=== PATIENT | male | born 1940 | race Caucasian/White ===

== ENCOUNTER 2016-05-21 07:06 | Observation (INO) | payer MEDICARE ==
[~2016-05-21] VITALS: Ht 175.3 cm; Wt 81.9 kg
[2016-05-21] MEDS ORDERED: METO12TA PO (07:22)
[2016-05-21] MEDS ORDERED: ASPI325T28 PO (07:22)
[2016-05-21] MEDS ORDERED: OMEP40CA2 PO (07:22)
[2016-05-21] MEDS ORDERED: DIGO0.12 PO (07:22)
[2016-05-21] MEDS ORDERED: LISI-538 PO (07:22)
[2016-05-21] MEDS ORDERED: LISINOPRIL 20 MG TAB PO ONE (08:45)
[2016-05-21] MEDS ORDERED: LISINOPRIL 10 MG TAB PO ONE ×2 (08:45)
[2016-05-21] MEDS ORDERED: MULTIVITAMINS/MINERALS THERAP 1 TAB PO SCH (09:00)
[2016-05-21] MEDS ORDERED: FOLIC ACID 1 MG TAB PO SCH (09:00)
[2016-05-21] MEDS: METOPROLOL TART 25 MG TABLET PO SCH ×2 (09:00→20:10)
[2016-05-21 09:04] LABS: MEAN CORPUSCULAR HEMOGLOBIN 31.6 pg (27.0-33.0); MEAN CORPUSCULAR HGB CONC 33.5 g/dl (32.0-36.5); MEAN CORPUSCULAR VOLUME 94.2 fl (80.0-96.0); RED CELL DISTRIBUTION WIDTH 12.6 % (11.5-14.5); WHITE BLOOD COUNT 5.5 K/mm3 (4.0-10.0)
[2016-05-21 09:30] LABS: ALBUMIN 3.5 GM/DL (3.2-5.2); ALBUMIN/GLOBULIN RATIO 1.13 (1.00-1.93); ALKALINE PHOSPHATASE 76 U/L (45-117); ALT/SGPT 28 U/L (12-78); ANION GAP 8 MEQ/L (8-16); AST/SGOT 21 U/L (15-37); BILIRUBIN,TOTAL 0.5 MG/DL (0.2-1.0); BLOOD UREA NITROGEN 22 MG/DL (7-18); CALCIUM LEVEL 8.7 MG/DL (8.8-10.2); CARBON DIOXIDE LEVEL 30 MEQ/L (21-32); CHLORIDE LEVEL 104 MEQ/L (98-107); CREATININE FOR GFR 0.84 MG/DL (0.70-1.30); GLOMERULAR FILTRATION RATE > 60.0 (>42); GLUCOSE, FASTING 98 MG/DL (83-110); POTASSIUM SERUM 4.4 MEQ/L (3.5-5.1); SODIUM LEVEL 142 MEQ/L (136-145); TOTAL PROTEIN 6.6 GM/DL (6.4-8.2)
[2016-05-21] MEDS ORDERED: OMEPRAZOLE 20 MG CAP PO ONE (09:45)
[2016-05-21 09:51] LABS: MAGNESIUM LEVEL 2.1 MG/DL (1.8-2.4)
[2016-05-21 10:13] LABS: MYOGLOBIN 85 NG/ML (16-116)
--- NOTE | 2016-05-21 11:17 | REP ---
CHEST, TWO VIEWS: Two views of the chest are performed. There is bibasilar interstitial fibrotic change which appear stable. There is no acute infiltrate or pulmonary edema. The heart is not enlarged. There is mild calcification of the thoracic aorta. The mediastinal silhouette is unchanged. IMPRESSION: Stable chronic findings without evidence of acute pulmonary disease. Signed by Ben Shafer MD 05/21/2016 04:35 P
[2016-05-21] MEDS ORDERED: ACETAMINOPHEN TAB 650MG DOSE (2X325MG) PO PRN (12:30)
[2016-05-21 14:00] VITALS: BP 166/79
[2016-05-21 14:02] LABS: ANION GAP 9 MEQ/L (8-16); BLOOD UREA NITROGEN 21 MG/DL (7-18); CALCIUM LEVEL 8.8 MG/DL (8.8-10.2); CARBON DIOXIDE LEVEL 29 MEQ/L (21-32); CHLORIDE LEVEL 104 MEQ/L (98-107); GLOMERULAR FILTRATION RATE > 60.0 (>42); GLUCOSE, FASTING 86 MG/DL (83-110); POTASSIUM SERUM 4.2 MEQ/L (3.5-5.1); SODIUM LEVEL 142 MEQ/L (136-145)
--- NOTE | 2016-05-21 14:42 | ECGEPIP ---
Stationary ECG Study [facility] - ED Test Date: 2016-05-21 Pat Name: YONI HICKS Department: Room: - Gender: M Carbonizer: jerry : 1940 Requested By: PAM Rosenbaum Order Number: [id number] Reading MD: Gaurav Minor Measurements Intervals [place] Rate: 58 P: 34 ID: 163 QRS: 9 QRSD: 143 T: 12 QT: 439 QTc: 431 Interpretive Statements SINUS BRADYCARDIA WITH OCCASIONAL SUPRAVENTRICULAR PREMATURE COMPLEXES INDETERMINATE AXIS RIGHT BUNDLE BRANCH BLOCK SIMILAR TO 10/13/13 Electronically Signed On 05-21-2016 14:42:43 EDT by Gaurav Minor
[2016-05-21] MEDS ORDERED: chlordiazePOXIDE 25 MG CAP PO ONE (14:45)
[2016-05-21] MEDS ORDERED: LORazepam 2 MG TAB PO PRN (14:45)
[2016-05-21] MEDS ORDERED: amLODIPine 5 MG TAB PO ONE (15:00)
--- NOTE | 2016-05-21 15:00 | HPEPDOC ---
Medical History and Physical Date of Admission May 21, 2016 at 12:19 History and Physical PRIMARY CARE PROVIDER: Pt says 'mauritian name', starts with a T; unsure ATTENDING: Jason Skaggs MD CHIEF COMPLAINT: High blood pressure HISTORY OF PRESENT ILLNESS: This is a 75-year-old male past medical history of atrial fibrillation (refused anticoagulation), hypertension, COPD who presents stating that his blood pressure is high. Patient had an episode of epistaxis earlier today, checked his blood pressure with systolic blood pressure greater than 170. Patient then decided to come to the emergency department. Patient states his epistaxis has completely resolved. In the ED patient's blood pressure was in the 170s was treated with an increased dose of lisinopril. While on the ED patient was directed to 15 beat of nonsustained V. tach. Patient was asymptomatic. Patient denied chest pain/shortness of breath/palpitations. Patient denies syncopal episode. No history of coronary artery disease or heart failure. I did speak with Thomas Kruse NP at [facility], patient's process specialist who recommended no antiarrhythmics unless the patient has recurrent V. tach. He will also see the patient on the of this month, and he'll schedule a 30 day Holter at that time. PAST MEDICAL HISTORY: As per HPI PAST SURGICAL HISTORY: Left sinus cyst removal SOCIAL HISTORY: History of tobacco abuse 1 pack per day 45 years, quit 14 years ago. Drinks 3-5 beers daily last drink 2 days ago. FAMILY HISTORY:M, F heart dz age 70s ALLERGIES: Please see below. REVIEW OF SYSTEMS: HEENT: Denies sore throat/headache CARDIOVASCULAR: Denies chest pain/palpitations RESPIRATORY: No shortness of breath/cough GASTROINTESTINAL: denies nausea/vomiting GENITOURINARY: Denies dysuria/urinary urgency. MUSCULOSKELETAL: Denies myalgias/arthralgias NEUROLOGICAL: Denies any focal weakness Rest of ROS negative HOME MEDICATIONS: Please see below. PHYSICAL EXAMINATION: Vitals: (see below) General: No acute distress, laying comfortably in bed. HEENT: Moist mucous membranes. Left nausea with dry blood. No active bleeding. Neck: No JVD or lymphadenopathy Cardiac: RRR, No murmurs Pulm: Clear to auscultation b/l. No wheezing, rhonchi Abd: NT/ND + BS Ext: No edema or cyanosis LABORATORY DATA: See below. IMAGING: MICROBIOLOGY: Please see below. ASSESSMENT/PLAN: 1. NSVT - asymptomatic; will monitor in PCU. Keep K>4; Mg>2. If recurrent consider inpatient cardiology consult as pt will likely need antiarrhythmic agent. Trend troponins. EKG with sinus bradycardia 56, complete right bundle branch block, nonspecific ST changes, no acute changes from prior EKG. 2. Uncontrolled HTN; lisinopril increased to 30 mg. Amlodipine added. 3. History of atrial fibrillation- on aspirin and metoprolol. Had an extensive conversation with the patient, and he is refusing anticoagulation 4. COPD- stable 5. Epistaxis- left nostril; follows up with ENT. History of left sinus cyst removal. 6. Alcohol abuse- Serax 15mg TID, Ativan as needed, MVI, folate, thiamine DVT prophylaxis- SCDs Vital Signs Vital Signs Date Time Temp Pulse Resp B/P Pulse Ox O2 Delivery O2 Flow Rate FiO2 05/21/16 14:00 97.9 55 19 166/79 95 Nasal Cannula 2.0 Laboratory Data Labs 24H Laboratory Tests 2 05/21/16 08:50: Blood Urea Nitrogen 22H, Creatinine 0.84, Sodium Level 142, Potassium Level 4.4 , Chloride Level 104, Carbon Dioxide Level 30, Calcium Level 8.7L, Aspartate Amino Transf (AST/SGOT) 21, Alanine Aminotransferase (ALT/SGPT) 28, Total Creatine Kinase 90, Alkaline Phosphatase 76, Total Bilirubin 0.5, Total Protein 6.6, Albumin 3.5, Albumin/Globulin Ratio 1.13, Anion Gap 8, Creatine Kinase MB 3.4, Creatine Kinase MB Relative Index 3.77, Digoxin Level 0.6, Glomerular Filtration Rate > 60.0, Magnesium Level 2.1, Myoglobin 85, Troponin I < 0.02 05/21/16 12:59: Blood Urea Nitrogen 21H, Creatinine 0.80, Sodium Level 142, Potassium Level 4.2 , Chloride Level 104, Carbon Dioxide Level 29, Calcium Level 8.8, Anion Gap 9, Glomerular Filtration Rate > 60.0 CBC/BMP Laboratory Tests 05/21/16 08:50 Calcium Level 8.7 L, Aspartate Amino Transf (AST/SGOT) 21, Alanine Aminotransferase (ALT/SGPT) 28, Total Creatine Kinase 90, Alkaline Phosphatase 76, Total Bilirubin 0.5, Total Protein 6.6, Albumin 3.5, Red Blood Count 4.62, Mean Corpuscular Volume 94.2, Mean Corpuscular Hemoglobin 31.6, Mean Corpuscular Hemoglobin Concent 33.5, Red Cell Distribution Width 12.6 05/21/16 12:59 Calcium Level 8.8 Home Medications Scheduled Aspirin (Aspirin) 325 Mg Tab 325 MG PO QHS Digoxin (Digoxin) 0.125 Mg Tab 0.125 MG PO QHS Lisinopril (Lisinopril) 20 Mg Tab 20 MG PO DAILY Metoprolol Tartrate (Metoprolol Tartrate) 25 Mg Tab 25 MG PO BID Omeprazole (Omeprazole) 40 Mg Cap 20 MG PO DAILY Allergies Coded Allergies: Sulfamethizole (Verified Allergy, Unknown, hives, 05/21/16) JASON SKAGGS MD May 21, 2016 15:00
[2016-05-21 16:00] VITALS: BP 149/80
[2016-05-21] MEDS: OXAZEPAM 15 MG CAP PO SCH ×2 (16:08→22:00)
[2016-05-21] MEDS: THIAMINE 100 MG TAB PO SCH ×2 (16:09→20:46)
[2016-05-21 18:00] VITALS: BP_SYST 142; BP_SYST 160; BP_DIAS 71; BP_DIAS 92
[2016-05-21] MEDS ORDERED: LORazepam 1 MG TAB PO PRN (18:12)
[2016-05-21 19:00] VITALS: BP 155/86
[2016-05-21 20:00] VITALS: BP 134/89
[2016-05-21 20:30] LABS: ANION GAP 8 MEQ/L (8-16); BLOOD UREA NITROGEN 23 MG/DL (7-18); CALCIUM LEVEL 8.8 MG/DL (8.8-10.2); CARBON DIOXIDE LEVEL 28 MEQ/L (21-32); CHLORIDE LEVEL 105 MEQ/L (98-107); CREATININE FOR GFR 0.81 MG/DL (0.70-1.30); GLOMERULAR FILTRATION RATE > 60.0 (>42); GLUCOSE, FASTING 112 MG/DL (83-110); POTASSIUM SERUM 3.9 MEQ/L (3.5-5.1); SODIUM LEVEL 141 MEQ/L (136-145)
[2016-05-21] MEDS ORDERED: DIGOXIN 0.125 MG TAB PO SCH (21:00)
[2016-05-21] MEDS ORDERED: ASPIRIN ENTERIC 325 MG TAB PO SCH (21:00)
[2016-05-21 22:00] VITALS: BP 106/68
[2016-05-22] VITALS: BP 142/84
[2016-05-22 00:22] LABS: ANION GAP 5 MEQ/L (8-16); BLOOD UREA NITROGEN 22 MG/DL (7-18); CALCIUM LEVEL 8.7 MG/DL (8.8-10.2); CARBON DIOXIDE LEVEL 30 MEQ/L (21-32); CHLORIDE LEVEL 105 MEQ/L (98-107); CREATININE FOR GFR 0.81 MG/DL (0.70-1.30); GLOMERULAR FILTRATION RATE > 60.0 (>42); GLUCOSE, FASTING 95 MG/DL (83-110); POTASSIUM SERUM 3.9 MEQ/L (3.5-5.1); SODIUM LEVEL 140 MEQ/L (136-145)
[2016-05-22 04:50] LABS: MEAN CORPUSCULAR HEMOGLOBIN 31.9 pg (27.0-33.0); MEAN CORPUSCULAR HGB CONC 34.2 g/dl (32.0-36.5); MEAN CORPUSCULAR VOLUME 93.4 fl (80.0-96.0); RED CELL DISTRIBUTION WIDTH 12.7 % (11.5-14.5); WHITE BLOOD COUNT 5.6 K/mm3 (4.0-10.0)
[2016-05-22 05:06] VITALS: BP 108/72
[2016-05-22 05:08] LABS: ANION GAP 9 MEQ/L (8-16); BLOOD UREA NITROGEN 22 MG/DL (7-18); CALCIUM LEVEL 8.5 MG/DL (8.8-10.2); CARBON DIOXIDE LEVEL 28 MEQ/L (21-32); CHLORIDE LEVEL 105 MEQ/L (98-107); CREATININE FOR GFR 0.82 MG/DL (0.70-1.30); GLOMERULAR FILTRATION RATE > 60.0 (>42); GLUCOSE, FASTING 96 MG/DL (83-110); MAGNESIUM LEVEL 2.1 MG/DL (1.8-2.4); POTASSIUM SERUM 4.2 MEQ/L (3.5-5.1); SODIUM LEVEL 142 MEQ/L (136-145)
[2016-05-22] MEDS: OXAZEPAM 15 MG CAP PO SCH (05:14)
[2016-05-22 07:45] VITALS: BP 127/83
[2016-05-22] MEDS ORDERED: AMLO5TAB2 PO (08:12)
[2016-05-22] MEDS ORDERED: VITMTA PO (08:12)
[2016-05-22] MEDS ORDERED: LISI10TA4 PO (08:12)
[2016-05-22] MEDS ORDERED: FOLI1TAB2 PO (08:12)
[2016-05-22] MEDS ORDERED: THIA100TA PO (08:12)
[2016-05-22 08:33] VITALS: BP 127/83
[2016-05-22] MEDS ORDERED: METO37.5 PO (08:33)
[2016-05-22] MEDS: METOPROLOL TART 25 MG TABLET PO SCH (08:33)
[2016-05-22] MEDS ORDERED: chlordiazePOXIDE 25 MG CAP PO SCH (09:00)
[2016-05-22] MEDS ORDERED: LISINOPRIL 10 MG TAB PO SCH (09:00)
[2016-05-22] MEDS ORDERED: OMEPRAZOLE 20 MG CAP PO SCH (09:00)
[2016-05-22] MEDS ORDERED: amLODIPine 5 MG TAB PO SCH (09:00)
--- NOTE | 2016-05-22 10:21 | ECGEPIP ---
Stationary ECG Study [facility] Test Date: 2016-05-21 Pat Name: YONI HICKS JR Department: Room: [place] [address] Gender: M Slate Splitter: EKATERINA : 1940 Requested By: BESSIE Carter Order Number: [id number] Reading MD: Topher Ford Measurements Intervals [place] Rate: 109 P: [place]: 0 QRS: -40 QRSD: 146 T: 8 QT: 346 QTc: 467 Interpretive Statements Atrial fibrillation with slightly rapid ventricular response Right axis deviation with right bundle branch block. Rhythm change from 05/21/16 Clinical correlation advised. Electronically Signed On 05-22-2016 10:21:01 EDT by Topher Ford
--- NOTE | 2016-05-22 18:25 | DSES ---
DATE OF ADMISSION: 05/21/2016 DATE OF DISCHARGE: 05/22/2016 PRIMARY CARE PROVIDER: [facility]. SURGICAL TECHNOLOGIST: [facility] [place] (Thomas Kruse). CONSULTANTS: None. PROCEDURES: None. COMPLICATIONS: None. ADMISSION/DISCHARGE DIAGNOSES: 1. Hypertensive urgency. 2. Nonsustained ventricular tachycardia. 3. History of atrial fibrillation. 4. Chronic obstructive pulmonary disease (COPD). 5. Epistaxis. 6. History of alcohol abuse. HOSPITALIZATION COURSE: The patient is a 77-year-old male who presented to [facility] on 05/21/2016 for uncontrolled blood pressure. When the patient arrived, the patient had a systolic blood pressure as high as 185/88. The patient was admitted to the progressive care unit (PCU) under observation status. During the admission, the patient was also found to have nonsustained ventricular tachycardia. histology specialist (Thomas Kruse) was contacted, who recommended no antiarrhythmia unless the patient has recurrent ventricular tachycardia. The patient is monitored on telemetry overnight and the patient's blood pressure medication has been adjusted. When the patient was seen the next morning, the patient's heart rate is controlled and the patient's blood pressure is also controlled and the patient is determined to be medically stable for discharge with recommendation to followup with patient's chargemaster specialist on 05/28/2016. The patient already has an appointment. The patient is also recommended alcohol cessation. The patient is also recommended to check blood pressure and pulse at least three times a day. The patient is instructed to contact medical provider is there are any abnormalities. OBJECTIVE: VITAL SIGNS: Temperature is 98, pulse is 88, respirations 18, blood pressure 127/83, pulse oximetry is 98% on room air. LABORATORY DATA: WBC is 5.6, hemoglobin 15.5, hematocrit 45.3, platelet count is 172. Sodium is 142, potassium 4.2, chloride 105, carbon dioxide 28, BUN is 22, creatinine 0.82, GFR greater than 60, fasting glucose 96, calcium is 8.5, magnesium 2.1, troponin I is negative after three sets. IMAGING STUDIES: Chest x-ray showed stable chronic findings without evidence of acute pulmonary disease. DISCHARGE INSTRUCTIONS: Discontinue line. Discharge home. Activity as tolerated. Low salt diet as tolerated. The patient should followup with chargemaster specialist on his scheduled appointment on 05/28/2016. The patient should followup with primary care provider within 1 to 2 weeks. DISCHARGE MEDICATIONS: - amlodipine 5 mg by mouth daily - folic acid 1 mg by mouth daily - Lisinopril 30 mg by mouth daily - metoprolol tartrate 37.5 mg by mouth twice a day - multivitamin one tablet by mouth daily - thiamine 100 mg by mouth daily - aspirin 325 mg by mouth at night - omeprazole 20 mg by mouth daily DISCHARGE CONDITION: Stable. DISCHARGE TIME: Greater than 30 minutes.
== END 2016-05-22 10:19 | disposition home or self-care (01) ==
LOC: M ED 08:09 → M ED INP 12:19 → M PCU 18:00
PROVIDERS: ADMIT Internal Medicine; ATTEND Internal Medicine
DX: I16.0 Hypertensive urgency (principal); I47.2 Ventricular tachycardia; I48.91 Unspecified atrial fibrillation; J44.9 Chronic obstructive pulmonary disease, unspecified; R04.0 Epistaxis; F10.10 Alcohol abuse, uncomplicated; I10 Essential (primary) hypertension; Z79.82 Long term (current) use of aspirin; Z79.899 Other long term (current) drug therapy; Z87.891 Personal history of nicotine dependence
CPT/HCPCS: 36415; 71020; 80048; 80053; 80162; 82550; 82553; 83735; 83874; 84484; 85027; 93005; 99285; G0378